=== PATIENT | male | born 1995 | race Caucasian/White ===

== ENCOUNTER 2017-02-14 07:59 | Emergency (ER) | payer OTHER ==
[~2017-02-14] VITALS: Ht 170.2 cm; Wt 63.6 kg
[2017-02-14] MEDS ORDERED: ALBU8HFA IH (08:04)
[2017-02-14] MEDS ORDERED: IBUPROFEN 600 MG TABLET PO ONE (11:00)
[2017-02-14 11:12] VITALS: BP 122/71
== END 2017-02-14 11:15 | disposition home or self-care (01) ==
LOC: EMS 08:03
DX: S13.4XXA Sprain of ligaments of cervical spine, initial encounter (principal); J45.909 Unspecified asthma, uncomplicated; V49.40XA Driver injured in collision with unspecified motor vehicles in traffic accident, initial encounter; Y93.89 Activity, other specified; Y92.89 Other specified places as the place of occurrence of the external cause; Y99.8 Other external cause status
CPT/HCPCS: 72125; 99284